=== PATIENT | male | born 1945 | race African-American/Black ===

== ENCOUNTER 2022-04-14 20:47 | Emergency (ER) | payer OTHER ==
[~2022-04-14] VITALS: Ht 175.3 cm; Wt 80.0 kg
[2022-04-14] MEDS ORDERED: TETANUS, DIPHTHERIA, PERTUSSIS VAC/PF 0.5ML (>10YR OLD) IM ONE (21:45)
[2022-04-14] MEDS ORDERED: IBUPROFEN 400MG TABLET PO ONE (21:45)
[2022-04-14 22:10] VITALS: BP 135/85
[2022-04-14] MEDS ORDERED: IBUP-2028 MT (23:00)
== END 2022-04-14 23:58 | disposition home or self-care (01) ==
LOC: ER 20:47
DX: S01.112A Laceration without foreign body of left eyelid and periocular area, initial encounter (principal); S00.81XA Abrasion of other part of head, initial encounter; I10 Essential (primary) hypertension; E11.9 Type 2 diabetes mellitus without complications; W01.0XXA Fall on same level from slipping, tripping and stumbling without subsequent striking against object, initial encounter; Y93.89 Activity, other specified; Y92.488 Other paved roadways as the place of occurrence of the external cause
CPT/HCPCS: 12011; 90471; 90715; 99285